=== PATIENT | male | born 1960 | race Hispanic/Latino ===

== ENCOUNTER → 2020-06-06 | Outpatient (CLI) | payer OTHER | LOC: NM 08:50 | PROVIDERS: ATTEND Internal Medicine Gastroenterology | DX: R10.13 Epigastric pain (principal); E11.9 Type 2 diabetes mellitus without complications; R14.0 Abdominal distension (gaseous); K44.9 Diaphragmatic hernia without obstruction or gangrene; K43.9 Ventral hernia without obstruction or gangrene; K21.9 Gastro-esophageal reflux disease without esophagitis; D12.6 Benign neoplasm of colon, unspecified; K64.8 Other hemorrhoids; E66.9 Obesity, unspecified; Z71.3 Dietary counseling and surveillance; F17.200 Nicotine dependence, unspecified, uncomplicated | CPT/HCPCS: 78264; A9541 ==